=== PATIENT | female | born 1975 | race Caucasian/White ===

== ENCOUNTER → 2017-11-10 | Outpatient (REF) | payer MEDICARE, MEDICAID ==
[~2017-11-10] MED LIST: CALC-682 PO; CEP500 PO; CIT20 PO; DULO60CA56 PO; GINK40TA PO; GLUC100026 PO; GUAR1TAB15 PO; LEVO-85 PO; LEVO1TAB29 PO; LEVO1TAB31 PO; LEVO1TAB48 PO; LEVO75TA73 PO; LORA-941 PO; METR-1 PO; OLO2ODPT OD; ONDA4TAB PO; SYSTANODPT OP; [UNRECOGNIZED DRUG - CODE] TP
== END ==
LOC: ZZSENDIN 17:24
PROVIDERS: ATTEND Physician Assistant
DX: Z01.411 Encounter for gynecological examination (general) (routine) with abnormal findings (principal); N76.0 Acute vaginitis
CPT/HCPCS: 87070; 87491; 87591

== ENCOUNTER 2017-12-13 14:38 | Outpatient (RCR) | payer MEDICARE, MEDICAID ==
--- NOTE | 2017-12-13 15:10 | RADIOLOGY IMAGING REPORT ---
FACILITY: [facility] - [place] PATIENT NAME: Cassia Wang : 1975 MR: [id number] V: [id number] EXAM DATE: ORDERING PHYSICIAN: GRAYSON GE TECHNOLOGIST: Location: [facility] Patient: Cassia Wang : 1975 Visit/Account:[id number] Date of Sevice: 12/13/2017 Examination: MR brain without contrast History: Cognitive decline Comparison: March 14, 2017 Technique: Multiplane MR imaging was performed through the brain without contrast. Findings: Diffusion: None Ventricles: Normal Midline shift: None Extraaxial fluid: None. Midline craniocervical structures: Normal Parenchyma: Unchanged faint bilateral parietal occipital parenchymal high signal. Unchanged left fron christy lobe small patch of encephalomalacia. Vascular flow voids: Normal Orbits and paranasal sinuses: Normal Impression: 1. No acute finding. 2. Unchanged small patch of left frontal lobe encephalomalacia and additional unchanged faint bilater al parietal occipital encephalomalacia. 3. Otherwise normal brain MR. Report Dictated By: Antony Mccallum MD at 12/13/2017 2:59 PM Report E-Signed By: Antony Mccallum MD at 12/13/2017 3:05 PM WSN:[email or web address]
--- NOTE | 2017-12-13 15:46 | RADIOLOGY IMAGING REPORT ---
FACILITY: [facility] - [place] PATIENT NAME: Cassia Wang : 1975 MR: [id number] V: [id number] EXAM DATE: ORDERING PHYSICIAN: GRAYSON GE TECHNOLOGIST: Location: [facility] Patient: Cassia Wang : 1975 Visit/Account:[id number] Date of Sevice: 12/13/2017 EXAMINATION: C SPINE W/O CONTRAST INDICATION: Neck pain COMPARISON: None available TECHNIQUE: Multiplane MR imaging was performed through the cervical spine without contrast. FINDINGS: Vertebral body height: Normal Cord signal: Normal Marrow signal: Normal Prevertebral and paraspinal soft tissues: Normal C2-3: Normal C3-4: Congenitally narrowed canal, small posterior disc protrusion. Mild to moderate canal narrowing. Mild to moderate left and moderate right foraminal narrowing. C4-5: Congenitally narrowed canal, small posterior disc protrusion. Severe canal narrowing. Mild cord deformity. Severe right and moderate left foraminal narrowing. C5-6: Mild degenerative disc disease, congenitally narrowed canal, small posterior disc protrusion, m oderate to severe canal narrowing. Mild cord deformity. Moderate left and moderate to severe right fo raminal narrowing. C6-7: Congenitally narrowed canal, small posterior disc protrusion, moderate canal narrowing, moderat e right foraminal narrowing, moderate to severe left foraminal narrowing. C7-T1: Normal IMPRESSION: 1. Multilevel canal narrowing secondary to congenitally narrowed canal and posterior disc protrusions most pronounced at the C4-5 level (severe canal narrowing) and C5-6 levels (moderate to severe canal narrowing). See level by level comments above. 2. Multilevel foraminal narrowing, see comments above. Report Dictated By: Antony Mccallum MD at 12/13/2017 3:37 PM Report E-Signed By: Antony Mccallum MD at 12/13/2017 3:41 PM WSN:[email or web address]
--- NOTE | 2017-12-18 14:19 | RADIOLOGY IMAGING REPORT ---
FAC[place]: [facility] [place]IENT NAME: Cassia Wang : 1975 MR: [id number] V: [id number] EXAM DATE: ORDERING PHYSICIAN: GRAYSON GE TECHNOLOGIST: Location: [facility] [place] Patient: Cassia Wang : 1975 Visit/Account:[id number] Date of Sevice: 12/18/2017 T SPINE W/O CONTRAST COMPARISON: None Additional pertinent history: Bowel and bladder incontinence with thoracic back pain Technique: Multiplanar multisequence thoracic spine MRI was performed without gadolinium enhancement. FINDINGS: Vertebral body height and alignment: Negative Marrow signal: Negative Vertebral bodies: Mild anteriorly directed osteophytes at multiple levels. Thoracic spinal cord signal: Negative Disc spaces: Circumferential disc bulging at multiple levels. Canal and neural foramina: Negative Surrounding soft tissues: Negative IMPRESSION: 1. Mild spondylitic change at multiple levels within the thoracic spine. 2. No underlying canal or neural foraminal narrowing. Report Dictated By: Collins Pena MD at 12/18/2017 2:11 PM Report E-Signed By: Collins Pena MD at 12/18/2017 2:15 PM WSN:[id number]
--- NOTE | 2017-12-18 14:23 | RADIOLOGY IMAGING REPORT ---
FACILITY: [facility] PATIENT NAME: Cassia Wang : 1975 MR: [id number] V: [id number] EXAM DATE: ORDERING PHYSICIAN: GRAYSON GE TECHNOLOGIST: Location: [facility] - [place], [place] Patient: Cassia Wang : 1975 Visit/Account:[id number] Date of Sevice: 12/18/2017 L SPINE W/O CONTRAST COMPARISON: None Additional pertinent history: Bowel and bladder incontinence with low back pain with bilateral sciati ca. Technique: Multiplanar multisequence lumbar spine MRI was performed without gadolinium enhancement. FINDINGS: Vertebral body heights and alignment: Negative. Vertebral marrow signal: Negative. Distal thoracic cord and conus: Negative. The conus ends at L1. Surrounding soft tissues: Negative. Inspection of the disc spaces reveal the following: L5-S1: Posterior broad-based disc protrusion with facet hypertrophic changes. No significant canal o r neural foraminal narrowing. L4-L5: Posterior broad-based disc protrusion with facet hypertrophic changes. Mild bilateral neural foraminal narrowing without canal stenosis. L3-L4: Negative. L2-L3: Negative. L1-L2: Negative. T12-L1: Negative. IMPRESSION: 1. Mild spondylitic change involving the lower lumbar spine. 2. Findings contribute to mild bilateral neural foraminal narrowing at L4-L5. 3. No underlying canal stenosis. Report Dictated By: Collins Pena MD at 12/18/2017 2:15 PM Report E-Signed By: Collins Pena MD at 12/18/2017 2:18 PM WSN:[id number]
--- NOTE | 2017-12-18 15:19 | RADIOLOGY IMAGING REPORT ---
FACILITY: [facility] - [place] PATIENT NAME: Cassia Wang : 1975 MR: [id number] V: [id number] EXAM DATE: ORDERING PHYSICIAN: GRAYSON GE TECHNOLOGIST: Location: [facility] Patient: Cassia Wang : 1975 Visit/Account:[id number] Date of Sevice: 12/18/2017 Thyroid ultrasound HISTORY: Neck fullness, hypothyroidism COMPARISON: None. FINDINGS: Thyroid size: Right lobe: 3.5 x 1.5 x 1 cm Left lobe: 3 x 0.9 x 0.9 cm Isthmus: 0.3 cm Thyroid nodules: Right lobe: None discrete. Left lobe: None discrete. Isthmus: None discrete. Thyroid vascularity: Within normal limits. IMPRESSION: 1. Slightly diminutive size of the thyroid gland but no focal nodule or mass. Report Dictated By: Tarik George MD at 12/18/2017 3:10 PM Report E-Signed By: Tarik George MD at 12/18/2017 3:14 PM WSN:[email or web address]
== END 2017-12-18 18:00 | disposition home or self-care (01) ==
LOC: EDSTATUS 14:38 → MRI 14:38
PROVIDERS: ATTEND Physician Assistant
DX: R41.89 Other symptoms and signs involving cognitive functions and awareness (principal); R41.3 Other amnesia; R32 Unspecified urinary incontinence; R15.9 Full incontinence of feces; R29.2 Abnormal reflex; R25.8 Other abnormal involuntary movements; M54.2 Cervicalgia
CPT/HCPCS: 70551; 72141; 72146; 72148; 76536

== ENCOUNTER → 2018-01-12 | Outpatient (CLI) | payer MEDICARE, MEDICAID ==
--- NOTE | 2018-01-12 11:57 | RADIOLOGY IMAGING REPORT ---
[place] [facility] [place]: Cassia Wang : 1975 MR: [id number] V: [id number] EXAM DATE: ORDERING PHYSICIAN: JANUSZ SHARIF TECHNOLOGIST: [facility] Patient: Cassia Wang : 1975 Visit/Account:[id number] Date of Sevice: 01/12/2018 PELVIC LTD OR F/U HISTORY: Urinary incontinence TECHNIQUE: Transabdominal ultrasound pelvis. Patient refused transvaginal imaging COMPARISON: None. FINDINGS: Uterus: ; 6.8 cm length x 1.7 cm AP x 2.8 cm transverse. Myometrium: Unremarkable. Endometrium: Appeared thin; double thickness 4.8 mm. Cervix: Grossly negative. Ovaries: Right - 2.1 x 1.4 x 1.8 cm Left - 1.7 x 1 x 2.1 cm Blood flow is documented in each ovary by duplex Doppler ultrasound. Adnexa: Grossly unremarkable. Free pelvic fluid: None. IMPRESSION: Unremarkable transabdominal pelvic ultrasound Report Dictated By: Hillary Gallardo MD at 01/12/2018 11:36 AM Report E-Signed By: Hillary Gallardo MD at 01/12/2018 11:53 AM WSN:[email or web address]
--- NOTE | 2018-01-12 11:59 | RADIOLOGY IMAGING REPORT ---
FACILITY: [facility] PATIENT NAME: Cassia Wang : 1975 MR: [id number] V: [id number] EXAM DATE: ORDERING PHYSICIAN: JANUSZ SHARIF TECHNOLOGIST: [place] [facility] [place]: Cassia Wang : 1975 Visit/Account:[id number] Date of Sevice: 01/12/2018 KIDNEYS EXAMINATION: Renal ultrasound. History: Urinary incontinence COMPARISON STUDIES: June 17, 2015 FINDINGS: Kidneys: Right kidney- 11.1 x 3.6 x 4.7 cm Left kidney- 12.4 x 4.4 x 5.6 cm Uniform and symmetric blood flow in each kidney by Doppler ultrasound. Hydronephrosis: none Resistive index on the right 0.60 and on the left 0.51 Bladder: Prevoid volume 350 mL. Post for residual 5 mL. Bilateral ureteral jets are present Abdominal aorta and IVC: Aorta and IVC are patent by Doppler ultrasound. IMPRESSION: Unremarkable renal bladder ultrasound Report Dictated By: Hillary Gallardo MD at 01/12/2018 11:53 AM Report E-Signed By: Hillary Gallardo MD at 01/12/2018 11:56 AM WSN:[id number]
== END ==
LOC: US 01-09 15:12
PROVIDERS: ATTEND Urology
DX: N39.41 Urge incontinence (principal); N39.9 Disorder of urinary system, unspecified
CPT/HCPCS: 76705; 76857

== ENCOUNTER 2018-02-01 02:37 | Day surgery (SDC) | payer MEDICARE, MEDICAID ==
--- NOTE | 2018-01-31 17:44 | HISTORY AND PHYSICAL ---
DATE OF ADMISSION: February 01, 2018 CHIEF COMPLAINT Urinary incontinence. HISTORY OF PRESENT ILLNESS The patient is a 41-year-old white female with a history of developmental delay and mental retardation. She was referred to the Urology Clinic by Suzanne Tate for urinary incontinence. The patient also has bowel incontinence as well. When seen in the clinic, she denied hematuria or dysuria. She had a urine culture which was consistent with contamination apparently prior to her appointment. On the day of her appointment, urinalysis was normal, and she had a postvoid residual of 94 mL. The patient has not had a colonoscopy performed. She denied any change in neurologic overall status. The [facility] staff who was with her also stated she has had no new neurologic change. The patient's primary complaint after extensive questioning was primarily urge incontinence at night with occasional nocturnal enuresis. The patient is now being brought to the operating room for planned exam under anesthesia with a cystoscopy. She did have renal and pelvic ultrasounds performed on the 9 of this month, both of which were normal. Her symptoms are better after starting Ditropan Xl. PAST MEDICAL HISTORY 1. Developmental delay. 2. Anxiety with depression. 3. Hypercholesterolemia. 4. Hypothyroidism. PAST SURGICAL HISTORY 1. Jaw surgery. 2. Strabismus. 3. Bilateral ear tubes. CURRENT MEDICINES 1. Levothyroxine. 2. Sronyx. 3. Zoloft. 4. Probiotics. 5. Topical Nystatin. 6. Triamcinolone cream. 7. Cymbalta. 8. Ditropan XL SOCIAL HISTORY The patient lives alone with assistance from [facility] in [place], [place]. REVIEW OF SYSTEMS The patient denies chest pain, shortness of breath, nausea, vomiting, fever, chills, productive cough, gross hematuria, or chronic headaches. PHYSICAL EXAMINATION GENERAL: The patient is a well-developed, white female with poor dentition. She is alert and oriented times three; however, she has poor long-term memory. Her mood and affect appear normal. CARDIOVASCULAR: Regular rate and rhythm. ABDOMEN: Soft, nontender. No masses are palpated. GENITOURINARY: Deferred to the OR. EXTREMITIES: Without clubbing, cyanosis, or edema. NEUROLOGIC: Nonfocal. IMPRESSION A 41-year-old white female with a history of mental retardation and developmental delay, now with elimination dysfunction with both loss of control of bowel and bladder with an overall normal nonfocal extremity exam. PLAN We will perform anesthetic cystoscopy with exam under anesthesia. This is to be followed by colonoscopy by Dr. Lewis. ELIZABETH
[~2018-02-01] VITALS: Ht 165.1 cm; Wt 86.6 kg
[~2018-02-01 02:37] MED LIST changes: +ACET-2043 PO; +ACID1TAB21 PO; +CALC-852 PO; +CLOT15CR64 TP; +DIAZ-308 PO; +EYEL1MED TP; +GINK60TA6 PO; +GLUC500T22 PO; +GUAI-244 PO; +IBUP-56 PO; +LEVO1TAB68 PO; +NAPR220C12 PO; +NYST15PO4 TP; +OLOP2.5D5 OP; +OXYB15TA17 PO; +SERT25TA90 PO; +SYSTANODPT OD; +VIT1CAPS34 PO
[2018-02-01 06:38] LABS: PLATELET COUNT, AUTOMATED 293 K/uL (150-450)
[2018-02-01] MEDS ORDERED: MIDAZOLAM 2 MG/2 ML VIAL IVP PRN (06:45)
[2018-02-01] MEDS ORDERED: GENTAMICIN IVPB ONE (06:45)
[2018-02-01] MEDS ORDERED: FAMOTIDINE 20 MG TAB PO ONE (06:45)
[2018-02-01] MEDS ORDERED: NORMOSOL R SOLN(*) 1000 ML BAG 1,000 ML IV PRN (06:45)
[2018-02-01] MEDS ORDERED: NS 0.9% IVPB ONE (06:45)
[2018-02-01] MEDS ORDERED: LIDOCAINE/SOD BICARB 8.4% SYR ID ONE (06:45)
[2018-02-01] MEDS ORDERED: LIDOCAINE 2% IV 100 MG/5ML SYR ONE (07:08)
[2018-02-01] MEDS ORDERED: fentaNYL CITR 100 MCG/2 ML AMP ONE (07:08)
[2018-02-01] MEDS ORDERED: PROPOFOL EMUL(*) 10MG/ML 20 ML 20 ML ONE (07:09)
[2018-02-01 07:52] VITALS: BP 139/90
[2018-02-01] MEDS ORDERED: ONDANSETRON 4 MG/2 ML VIAL ONE ×2 (07:56→10:12)
[2018-02-01] MEDS ORDERED: DEXAMETHASONE SOD 4 MG/ML VIAL ONE (07:56)
[2018-02-01] MEDS ORDERED: BELLADONNA ALK/OPIUM 60MG SUPP PR ONE (08:02)
[2018-02-01] MEDS ORDERED: PROMETHAZINE 25 MG/ML 1 ML AMP ONE (08:50)
[2018-02-01 09:30] VITALS: BP 114/83
[2018-02-01 09:45] VITALS: BP 111/79
[2018-02-01 09:58] VITALS: BP 118/78
[2018-02-01 09:59] VITALS: BP 117/80
--- NOTE | 2018-02-01 14:46 | OPERATIVE REPORT 1 ---
EVENT DATE: February 01, 2018 SURGEON: Harshil Pascual MD ANESTHESIOLOGIST: Kevin Gant MD ANESTHESIA: General anesthetic. PREOPERATIVE DIAGNOSIS Urinary incontinence. POSTOPERATIVE DIAGNOSIS Urinary incontinence. PROCEDURES PERFORMED 1. Anesthetic cystoscopy with measurement of bladder capacity. 2. Bimanual exam under anesthesia. ESTIMATED BLOOD LOSS Minimal. INTRAVENOUS FLUIDS Crystalloid. DRAINS None. COMPLICATIONS None. FINDINGS Normal cystoscopic exam and normal bimanual exam. STATEMENT OF MEDICAL NECESSITY The patient is a 42-year-old white female with a history of developmental delay who was referred to the Urology Clinic for increasing urinary incontinence, mainly urge incontinence and nocturnal enuresis. She was also having significant soilage of bowel as well. She is now being brought to the operating room for planned anesthetic cystoscopy and exam under anesthesia along with planned colonoscopy by Dr. Lewis. Preoperatively, she had a normal bladder and pelvic ultrasound. She was empirically given Ditropan preoperatively which has greatly improved her symptoms. SUMMARY OF PROCEDURE PERFORMED The patient was brought to the operating room. After general anesthetic was obtained, she was placed in the dorsal lithotomy position and prepped and draped in the usual sterile manner. Digital exam revealed normal-appearing external female genitalia. Her meatus was in the normal position without evidence of masses or caruncles. The 21-English rigid scope with the 30-degree lens was introduced under direct vision without difficulty. She had a normal- appearing urethra with no bladder neck inflammatory polyps. Her bladder mucosa was smooth. She had a single slit-like ureteral orifice in the respective hemitrigones, both effluxing clear urine. There were no extrinsic mass effects on the bladder, and she had no cystocele defect by cystoscopic exam. The patient's bladder was filled with gravity influx of approximately 30 cm and drained at a volume of slightly over 900 mL. The scope was reintroduced. She was noted to have no petechial hemorrhaging or injuries to the bladder. At this point, the 70-degree lens was introduced and the anterior surface and dome inspected. All appeared normal as well. At this point, the patient's bladder was drained, and again, approximately 350 mL were introduced. Bimanual exam was performed, and no leakage was noted at this volume. She had a possible grade 1 cystocele and grade 1 rectocele with normal rectal tone. There were no pelvic masses, and her bladder was freely mobile within the pelvis. At this point, the cystoscopic sheath was then reintroduced to drain the patient's bladder. At this point, Dr. Lewis performed colonoscopy. At the conclusion of the cystoscopy, the patient was in stable condition without apparent complications or issues. PLAN We will allow the patient to be discharged home today after the colonoscopy is performed. We will continue on her Ditropan XL 15 mg once a day along with timed double voiding routine. We will plan to see her in the Urology Clinic in six to eight weeks for followup. ELIZABETH
--- NOTE | 2018-02-01 15:02 | OPERATIVE REPORT 1 ---
EVENT DATE: February 01, 2018 SURGEON: Rohit Lewis MD ANESTHESIOLOGIST: Kevin Gant MD ANESTHESIA: General PROCEDURE PERFORMED Colonoscopy. PREOPERATIVE DIAGNOSIS Fecal incontinence. POSTOPERATIVE DIAGNOSIS Normal colonoscopy. DESCRIPTION OF PROCEDURE The patient was taken to the cystoscopy room for cystoscopy with Dr. Pascual. Following cystoscopy, colonoscopy was performed. Insufflation of the colon with air allowed advancement of the colonoscope to the cecum. The cecum was identified by palpation and the usual landmarks. Withdrawal time from the cecum was greater than six minutes. The mucosa appeared normal. There were no mucosal abnormalities, diverticula, or polyps. Retroflexion view from the anus was normal. RECOMMENDATIONS Next colonoscopy would be advised at age 51 for screening for colorectal cancer if other screening procedures are declined. MTDD
== END 2018-02-01 09:30 | disposition home or self-care (01) ==
LOC: OR 02:37
PROVIDERS: ATTEND Urology
DX: R32 Unspecified urinary incontinence (principal); R15.9 Full incontinence of feces; Z01.419 Encounter for gynecological examination (general) (routine) without abnormal findings; E03.9 Hypothyroidism, unspecified
CPT/HCPCS: 00811; 36415; 45378; 52000; 81001; 84443; 84703; 85025; 87088; A9270; G0101; J1100; J1580; J2001; J2405; J2550; J2704; J3010; J7050

== ENCOUNTER → 2019-04-05 | Outpatient (CLI) | payer MEDICARE, MEDICAID ==
--- NOTE | 2019-04-05 15:19 | RADIOLOGY IMAGING REPORT ---
FACILITY: [facility] PATIENT NAME: BAILEY ADLER : [id number] MR: [id number] V: [id number] EXAM DATE: ORDERING PHYSICIAN: REECE EARL TECHNOLOGIST: Cady Clark PROCEDURE: BILATERAL DIGITAL SCREENING MAMMOGRAM WITH CAD ASSISTED INTERPRETATION & 3D TOMOSYNTHESIS REASON FOR STUDY: Screening FAMILY HISTORY OF BREAST CANCER: Unknown BREAST PROCEDURES/TREATMENTS: None reported COMPARISON: 03/06/17, 05/12/16, 03/26/14, 05/13/13, 10/24/12 VIEWS OBTAINED: Bilateral 2D full field CC & MLO projections BREAST DENSITY: The breasts are heterogeneously dense which can obscure small masses. MAMMOGRAM FINDINGS: The previously noted nodular density in the 12 o'clock position of the Right breast appears smaller. The remainder of the parenchymal pattern has remained stable allowing for differences in mammographic technique & patient positioning. IMPRESSION: BIRADS 2: Benign finding. DIAGNOSTIC CATEGORY 2--BENIGN FINDING. RECOMMENDATIONS: ROUTINE MAMMOGRAM AND CLINICAL EVALUATION. Dictated by: Hillary Gallardo M.D. on 04/05/2019 at 10:10 Transcribed by: MATTHEW on 04/05/2019 at 11:09 Approved by: Hillary Gallardo M.D. on 04/05/2019 at 15:18 [facility]
== END ==
LOC: MAMO 02:04
PROVIDERS: ATTEND Physician Assistant
DX: Z12.31 Encounter for screening mammogram for malignant neoplasm of breast (principal)
CPT/HCPCS: 77063; 77067